=== PATIENT | female | born 1980 | race Caucasian/White ===

== ENCOUNTER 2019-09-19 15:50 | Emergency (ER) | payer OTHER, SELFPAY ==
[2019-09-19 16:00] VITALS: BP 120/81; PULSE 68; RESP 16; TEMP 36.7; O2SAT 100; BMI 23.3
--- NOTE | 2019-09-19 17:53 | PC.NURSE ---
called from waiting room with no answer x 1
--- NOTE | 2019-09-19 18:27 | PC.NURSE ---
called from waiting room x 2. pt not in waiting room.
--- NOTE | 2019-09-20 09:09 | PC.NURSE ---
called patient to follow up on her [facility]. pt reports that she left [facility] since she was feeling better from her allergic reaction and felt safe to go home. she reported that the wait informed pt that she is welcome to come back anytime. pt reports she feels good.
== END 2019-09-19 18:28 | disposition left against medical advice (07) ==
PROVIDERS: Emergency Provider Emergency Medicine
CPT/HCPCS: 99281